=== PATIENT | male | born 1955 | race Caucasian/White ===

== ENCOUNTER 2017-12-23 13:30 | Emergency (ER) | payer OTHER ==
[2017-12-23 13:41] VITALS: RESP 18; TEMP 98.1
--- NOTE | 2017-12-23 14:33 | EDPHY ---
H & P Time Seen by Provider: 12/23/17 14:26 HPI/ROS: CHIEF COMPLAINT: Right thumb pain HISTORY OF PRESENT ILLNESS: 62-year-old male presents with right thumb pain and deformity. He was skiing this afternoon, and fell directly onto his right thumb. Immediate onset of severe pain and deformity. Associated with a tingling sensation of the finger tip. The pain has subsided now. No other injuries. ROS: No weakness, bleeding, syncopal episode, other injury. Past Medical/Surgical History: Hyperlipidemia Smoking Status: Never smoked Physical Exam: Alert and oriented, pleasant Extremities: Right thumb-deformity at the IP joint, dislocated dorsally Skin: Intact Neuro: sensory intact Vascular: Capillary refill brisk distally Constitutional: Initial Vital Signs Temperature (C) 36.7 C 12/23/17 13:35 Heart Rate 78 12/23/17 13:35 Respiratory Rate 18 12/23/17 13:35 Blood Pressure 129/79 H 12/23/17 13:35 O2 Sat (%) 96 12/23/17 13:35 O2 Delivery Mode Room Air Allergies/Adverse Reactions: Penicillins Allergy (Mild, Verified 12/23/17 13:38) Rash Home Medications: Medication Instructions Recorded Aspirin EC [Aspirin EC 325 mg (*)] 325 mg PO DAILY 12/23/17 Simvastatin [Zocor] 20 mg PO 12/23/17 Medical Decision Making - Diagnostics Imaging Results: Right thumb x-ray independently reviewed by me reveals a dislocation of the distal phalanx of the thumb. Repeat x-ray after reduction reveals adequate reduction of the thumb dislocation. ED Course/Re-evaluation: The right thumb dislocation at the IP joint was easily reduced by me using traction/counter traction. Repeat x-ray revealed adequate reduction. Velcro thumb spica splint placed. Neurovascularly intact after application. Will follow up with Hand surgery. Departure - Departure Disposition: Home, Routine, Self-Care Clinical Impression: Closed dislocation of thumb Qualifiers: Encounter type: initial encounter Laterality: right Qualified Code(s): S63.104A - Unspecified dislocation of right thumb, initial encounter Condition: Good Instructions: Finger Dislocation (ED) Additional Instructions: Ibuprofen 600 mg 3 times daily while the pain persists. Referrals: G[facility] PENA [Other] - As per Instructions Juan Noble MD [Medical Doctor] - As per Instructions (Call to make an appointment.)
[2017-12-23 15:12] VITALS: BP 127/86; PULSE 75; O2SAT 97
== END 2017-12-23 15:12 | disposition home or self-care (01) ==
PROC: 0RSWXZZ Reposition Right Finger Phalangeal Joint, External Approach (ICD-10-PCS; principal; 2017-12-23)
DX: S63.104A Unspecified dislocation of right thumb, initial encounter (principal); Z79.82 Long term (current) use of aspirin; W18.39XA Other fall on same level, initial encounter; Y99.8 Other external cause status; Y93.23 Activity, snow (alpine) (downhill) skiing, snowboarding, sledding, tobogganing and snow tubing
CPT/HCPCS: L3807